=== PATIENT | female | born 1990 | race African-American/Black ===

== ENCOUNTER 2019-10-08 06:14 | Inpatient (IN) ==
[2019-10-08] MEDS ORDERED: BUTORPHANOL 2 MG/ML VIAL IV PRN (07:28)
[2019-10-08] MEDS ORDERED: ONDANSETRON 4 MG/2 ML VIAL IV PRN (07:28)
[2019-10-08] MEDS ORDERED: MEPERIDINE 50 MG/1 ML VIAL IV PRN (07:28)
[2019-10-08] MEDS ORDERED: LACTATED RINGERS 1,000 ML IV SCH (07:30)
[2019-10-08] MEDS: OXYTOCIN/LR 20 UNIT/1,000 ML BAG IV SCH ×2 (07:47→21:15)
[2019-10-08 07:59] LABS: Basophils # 0.1 10*3/uL (0.0-0.2); Basophils % 0.5 % (0.0-0.8); Eosinophils # 0.1 10*3/uL (0.0-0.87); Eosinophils % 0.5 % (0.00-10.9); Hematocrit 31.9 VOL% (35.7-47.0); Hemoglobin 10.2 GM/DL (12.0-16.0); Immature Granulocytes % 1.4 %; Immature Granulocytes Absolute 0.14 #; Lymphocytes # 1.5 10*3/uL (1.4-4.0); Lymphocytes % 15.4 % (21.3-54.2); Mean Corpuscular Volume 88.4 FL (87-102); Mean Platelet Volume 9.9 FL (9.6-12.0); Monocytes % 10.8 % (1.7-12.7); Neutrophils % 71.4 % (38.7-73.9); Platelet Count 322 T/CUMM (130-400); Red Blood Count 3.61 MC/CUMM (3.8-5.5); Red Cell Distribution Width 13.8 % (9.3-17.3); White Blood Count 9.8 T/CUMM (4-12)
[2019-10-08] MEDS ORDERED: PROMETHAZINE 25 MG/1 ML VIAL IM ONE (08:42)
[2019-10-08] MEDS ORDERED: ePHEDrine 50 MG/ML AMP IV PRN (08:42)
[2019-10-08] MEDS ORDERED: LACTATED RINGERS 1,000 ML IV ONE (08:42)
[2019-10-08] MEDS ORDERED: hydrOXYzine HCL 25 MG/1 ML VIAL IM PRN (08:42)
[2019-10-08] MEDS ORDERED: ONDANSETRON 4 MG/2 ML VIAL IV ONE (08:42)
[2019-10-08] MEDS ORDERED: NALOXONE 0.4 MG/ML VIAL IV PRN (08:42)
[2019-10-08] MEDS ORDERED: FAMOTIDINE 20 MG/2 ML VIAL IV ONE (08:42)
[2019-10-08] MEDS ORDERED: diphenhydrAMINE 50 MG/1 ML VIAL IV PRN ×2 (08:42)
[2019-10-08] MEDS ORDERED: CITRIC ACID/SODIUM CITRATE 30 ML UDCUP PO ONE (08:42)
[2019-10-08] MEDS ORDERED: fentaNYL 2 MCG/ROPIV 0.2% EPID 100 ML EPIDURAL SCH (09:00)
[2019-10-08 13:14] LABS: Apearance,Urine CLOUDY (Clear); Bilirubin,Urine Negative (Negative); Blood, Urine Large mg/dL (Negative); Glucose,Urine (UA) Negative (Negative); Ketones,Urine 80 mg/dL (Negative); Mucus,Urine Many /LPF (Occasional); Nitrite,Urine Negative (Negative); Protein,Urine 100 MG/DL; RBC,Urine 312 /HPF (0-4); Squamous Epithelial Cell,Urine Many /HPF (0-10); Urine Color Amber (Yellow); Urine Specific Gravity 1.024 (1.001-1.035); WBC,Urine 45 /HPF (0-6)
[2019-10-08 17:17] LABS: Cord Venous Blood HCO3 21.1 MMOL/L; Cord Venous Blood PCO2 48.3 MMHG; Cord Venous Blood PO2 34.3
[2019-10-08] MEDS ORDERED: OXYTOCIN/LR 20 UNIT/1,000 ML BAG IV ONE (21:39)
[2019-10-08] MEDS ORDERED: MEASLES/MUMPS/RUBELLA VACCINE 0.5 ML VIAL SUBCUT ONE (21:39)
[2019-10-08] MEDS ORDERED: DIPH/TET/ACEL PERT BOOSTER VACCINE 0.5 ML VIAL IM ONE (21:39)
[2019-10-08] MEDS ORDERED: BISACODYL 10 MG SUPP RECTAL PRN (21:39)
[2019-10-08] MEDS ORDERED: HYDROCORTISONE 2.5% RECTAL CREAM 30 GM TUBE TOP PRN (21:39)
[2019-10-08] MEDS ORDERED: LANOLIN 50% CREAM 0.3 OZ TUBE TOP PRN (21:39)
[2019-10-08] MEDS ORDERED: oxyCODONE/ACETAMINOPHEN 5-325 MG TABLET PO PRN (21:39)
[2019-10-08] MEDS ORDERED: WITCH HAZEL PADS 100/JAR TOP PRN (21:39)
[2019-10-08] MEDS ORDERED: BENZOCAINE 20%/MENTHOL 0.5% SPRAY 56 GM CAN TOP PRN (21:39)
[2019-10-08] MEDS ORDERED: ACETAMINOPHEN 325 MG TABLET PO PRN (21:39)
[2019-10-08] MEDS ORDERED: RHO(D) IMMUNE GLOBULIN 300 MCG SYRINGE IM ONE (21:39)
[2019-10-08] MEDS: oxyCODONE/ACETAMINOPHEN 5-325 MG TABLET PO PRN (23:08)
[2019-10-09 05:28] LABS: Basophils % 0.2 % (0.0-0.8); Eosinophils % 0.2 % (0.00-10.9); Hematocrit 30.9 VOL% (35.7-47.0); Hemoglobin 9.6 GM/DL (12.0-16.0); Immature Granulocytes Absolute 0.17 #; Lymphocytes % 12.1 % (21.3-54.2); Mean Corpuscular HGB Conc 31.1 GM/DL (32-36); Mean Platelet Volume 10.3 FL (9.6-12.0); Monocytes % 11.3 % (1.7-12.7); Neutrophils % 75.2 % (38.7-73.9); Platelet Count 287 T/CUMM (130-400); Red Blood Count 3.47 MC/CUMM (3.8-5.5); Red Cell Distribution Width 13.8 % (9.3-17.3); White Blood Count 16.3 T/CUMM (4-12)
[2019-10-09] MEDS: IBUPROFEN 800 MG TABLET PO PRN ×2 (06:07→16:15)
[2019-10-09] MEDS: DOCUSATE SODIUM 100 MG CAPSULE PO SCH ×2 (08:50→21:06)
[2019-10-09] MEDS: oxyCODONE/ACETAMINOPHEN 5-325 MG TABLET PO PRN (21:25)
[2019-10-10] MEDS: IBUPROFEN 800 MG TABLET PO PRN (03:07)
[2019-10-10 07:25] VITALS: BP 133/74
[2019-10-10] MEDS: DOCUSATE SODIUM 100 MG CAPSULE PO SCH ×2 (09:11→09:15)
[2019-10-10] MEDS: oxyCODONE/ACETAMINOPHEN 5-325 MG TABLET PO PRN (10:55)
[2019-10-10] MEDS ORDERED: FERROUS SULFATE 325 MG TABLET PO SCH (17:00)
== END 2019-10-10 13:15 | disposition home or self-care (01) | DRG 807 ==
LOC: N.LDOUT 06:14 → N.LD 06:20 → N.OB 21:25
PROVIDERS: ADMIT Obstetrics & Gynecology; ATTEND Obstetrics & Gynecology